=== PATIENT | female | born 1955 ===

== ENCOUNTER 2020-03-03 09:18 | Outpatient (REF) | payer SELFPAY ==
[2020-03-07 02:28] LABS: SARS-CoV-2 RNA Undetected (Undetected); SARS-CoV-2 Specimen Source Nasal
== END 2020-03-03 09:38 ==
LOC: NCHCN 09:18
PROVIDERS: Visit Provider Internal Medicine
DX: Z20.828 Contact with and (suspected) exposure to other viral communicable diseases (principal)
CPT/HCPCS: U0003